=== PATIENT | female | born 1975 | race Caucasian/White ===

== ENCOUNTER → 2018-01-31 | Outpatient (CLI) | payer BC ==
[~2018-01-31] MED LIST: SUM25T PO; TRAM50TA2 PO
[2018-01-31 12:45] LABS: Basophils # (auto) 0.1 uL; Eosinophils # (auto) 0.2 uL; Hemoglobin 11.4 g/dL (12.2-16.2); Mean Corpuscular Volume 71.9 fL (80.0-100.0)
[2018-01-31 12:47] LABS: Basophils % (auto) 0.9 % (0.0-2.0); Eosinophils % (auto) 2.8 % (0.0-7.0); Hematocrit 35.9 % (36.0-46.0); Lymphocytes # (auto) 1.6 uL; Lymphocytes % (auto) 24.2 % (10.0-50.0); Mean Corpuscular Hemoglobin 22.8 pg (28.0-32.0); Mean Corpuscular Hgb Conc. 31.8 g/dL (32.0-36.0); Monocytes # (auto) 0.3 uL; Monocytes % (auto) 5.1 % (0.0-12.0); Neutrophils # (auto) 4.6 uL; Platelet Count (auto) 324 10^3/uL (140-450); Red Blood Cells 4.99 10^6/uL (4.0-5.20); Red Cell Distribution Width 16.8 % (11.8-14.3); White Blood Cell 6.8 10^3/uL (4.4-10.8)
[2018-01-31 13:24] LABS: Urine Bacteria FEW /hpf (None Seen); Urine Blood Negative /uL (Negative); Urine Mucus FEW (None Seen); Urine Specific Gravity 1.028 (1.001-1.035); Urine WBC 3 /hpf (0 - 5)
[2018-01-31 13:53] LABS: Albumin 3.7 g/dL (3.4-5.0); Calcium 8.9 mg/dL (8.5-10.1); Potassium 4.2 mmol/L (3.5-5.1)
[2018-01-31 13:59] LABS: BUN/Creatinine Ratio 13.7; Bilirubin, Total 0.2 mg/dL (0.2-1.0); Total Protein 8.2 g/dL (6.4-8.2)
== END | disposition home or self-care (01) ==
LOC: LAB 11:09
PROVIDERS: ATTEND Physician Assistant
DX: Z00.01 Encounter for general adult medical examination with abnormal findings (principal); N20.0 Calculus of kidney; N23 Unspecified renal colic; G43.909 Migraine, unspecified, not intractable, without status migrainosus
CPT/HCPCS: 36415; 80053; 80061; 81001; 82306; 83036; 84443; 85025

== ENCOUNTER → 2019-04-18 | Outpatient (CLI) | payer BC ==
[2019-04-18 09:50] LABS: Basophils # (auto) 0.1 uL; Eosinophils # (auto) 0.3 uL; Monocytes # (auto) 0.4 uL
[2019-04-18 09:52] LABS: Basophils % (auto) 0.8 % (0.0-2.0); Eosinophils % (auto) 4.9 % (0.0-7.0); Hematocrit 33.8 % (36.0-46.0); Lymphocytes # (auto) 1.3 uL; Mean Corpuscular Hemoglobin 23.6 pg (28.0-32.0); Mean Corpuscular Hgb Conc. 32.7 g/dL (32.0-36.0); Mean Corpuscular Volume 72.3 fL (80.0-100.0); Monocytes % (auto) 6.6 % (0.0-12.0); Neutrophils % (auto) 65.7 % (37.0-80.0); Platelet Count (auto) 294 10^3/uL (140-450); Red Blood Cells 4.67 10^6/uL (4.0-5.20); Red Cell Distribution Width 16.8 % (11.8-14.3)
[2019-04-18 10:28] LABS: Potassium 4.6 mmol/L (3.5-5.1)
[2019-04-18 10:47] LABS: Albumin 3.5 g/dL (3.4-5.0); BUN/Creatinine Ratio 12.3; Bilirubin, Total 0.3 mg/dL (0.2-1.0)
== END | disposition home or self-care (01) ==
LOC: LAB 09:17
PROVIDERS: ATTEND Physician Assistant
DX: N20.0 Calculus of kidney (principal); N92.1 Excessive and frequent menstruation with irregular cycle; R53.83 Other fatigue
CPT/HCPCS: 36415; 80053; 80061; 85025

== ENCOUNTER → 2019-08-02 | Outpatient (CLI) | payer BC | END | disposition home or self-care (01) | LOC: LAB 10:15 | PROVIDERS: ATTEND Physician Assistant | DX: M25.511 Pain in right shoulder (principal); Z82.61 Family history of arthritis | CPT/HCPCS: 86431 ==

== ENCOUNTER → 2019-11-21 | Outpatient (CLI) | payer BC ==
[2019-11-21 09:15] LABS: Basophils # (auto) 0.1 10 ^3/uL (0-0.2); Basophils % (auto) 1.4 % (0.0-2.0); Eosinophils # (auto) 0.2 10 ^3/uL (0-0.8); Hematocrit 35.1 % (36.0-46.0); Mean Corpuscular Hemoglobin 24.1 pg (28.0-32.0); Monocytes # (auto) 0.4 10 ^3/uL (0-1.3); Neutrophils # (auto) 4.3 10 ^3/uL (1.6-8.6); Nucleated Red Blood Cells % 0.1 %; Red Blood Cells 4.75 10^6/uL (4.0-5.20); Red Cell Distribution Width 15.9 % (11.8-14.3)
[2019-11-21 09:17] LABS: Eosinophils % (auto) 3.7 % (0.0-7.0); Hemoglobin 11.5 g/dL (12.2-16.2); Lymphocytes # (auto) 1.6 10 ^3/uL (0.4-5.4); Lymphocytes % (auto) 23.6 % (10.0-50.0); Mean Corpuscular Hgb Conc. 32.7 g/dL (32.0-36.0); Mean Corpuscular Volume 73.8 fL (80.0-100.0); Neutrophils % (auto) 65.3 % (37.0-80.0); Platelet Count (auto) 341 10^3/uL (140-450); White Blood Cell 6.6 10^3/uL (4.4-10.8)
[2019-11-21 09:56] LABS: Albumin 3.7 g/dL (3.4-5.0); Calcium 8.7 mg/dL (8.5-10.1)
[2019-11-21 09:59] LABS: Bilirubin, Total 0.3 mg/dL (0.2-1.0); CRP High Sensitivity 0.47 mg/dL (< 0.3); Total Protein 7.9 g/dL (6.4-8.2)
[2019-11-21 10:02] LABS: BUN/Creatinine Ratio 9.7
[2019-11-21 11:23] LABS: Hepatitis B Core Total AB Negative; Hepatitis B Surface Antigen Negative (Negative)
== END | disposition home or self-care (01) ==
LOC: LAB 08:53
PROVIDERS: ATTEND Internal Medicine Rheumatology
DX: Z11.1 Encounter for screening for respiratory tuberculosis (principal); M05.79 Rheumatoid arthritis with rheumatoid factor of multiple sites without organ or systems involvement; R94.5 Abnormal results of liver function studies; M32.10 Systemic lupus erythematosus, organ or system involvement unspecified
CPT/HCPCS: 36415; 80053; 85025; 85652; 86038; 86141; 86200; 86225; 86431; 86704; 87340

== ENCOUNTER → 2020-01-04 | Outpatient (CLI) | payer BC | END | disposition home or self-care (01) | LOC: LAB 11:08 | PROVIDERS: ATTEND Internal Medicine | DX: Z20.828 Contact with and (suspected) exposure to other viral communicable diseases (principal) | CPT/HCPCS: C9803; U0003 ==

== ENCOUNTER → 2020-05-15 | Outpatient (CLI) | payer BC ==
[2020-05-15 14:00] LABS: Basophils # (auto) 0.1 10 ^3/uL (0-0.2); Eosinophils # (auto) 0.1 10 ^3/uL (0-0.8); Hemoglobin 11.6 g/dL (12.2-16.2); Neutrophils # (auto) 5.4 10 ^3/uL (1.6-8.6)
[2020-05-15 14:03] LABS: Basophils % (auto) 0.8 % (0.0-2.0); Eosinophils % (auto) 1.4 % (0.0-7.0); Hematocrit 35.8 % (36.0-46.0); Lymphocytes # (auto) 1.6 10 ^3/uL (0.4-5.4); Lymphocytes % (auto) 21.5 % (10.0-50.0); Mean Corpuscular Hemoglobin 23.4 pg (28.0-32.0); Mean Corpuscular Hgb Conc. 32.4 g/dL (32.0-36.0); Mean Corpuscular Volume 72.3 fL (80.0-100.0); Monocytes # (auto) 0.4 10 ^3/uL (0-1.3); Monocytes % (auto) 5.4 % (0.0-12.0); Neutrophils % (auto) 70.9 % (37.0-80.0); Platelet Count (auto) 354 10^3/uL (140-450); Red Blood Cells 4.95 10^6/uL (4.0-5.20); White Blood Cell 7.6 10^3/uL (4.4-10.8)
[2020-05-15 15:36] LABS: Leuteinizing Hormone 5.8 IU/L
[2020-05-15 15:37] LABS: Follicle Stimulating Hormone 11.58 IU/L (SEE BELOW)
== END | disposition home or self-care (01) ==
LOC: LAB 13:31
PROVIDERS: ATTEND Obstetrics & Gynecology
DX: N93.9 Abnormal uterine and vaginal bleeding, unspecified (principal)
CPT/HCPCS: 36415; 82670; 83001; 83002; 84443; 85025

== ENCOUNTER → 2020-05-27 | Outpatient (CLI) | payer BC ==
[2020-05-27 14:30] LABS: Basophils # (auto) 0.1 10 ^3/uL (0-0.2); Eosinophils # (auto) 0.2 10 ^3/uL (0-0.8); Monocytes # (auto) 0.5 10 ^3/uL (0-1.3); Neutrophils # (auto) 4.8 10 ^3/uL (1.6-8.6); Nucleated Red Blood Cells % 0.1 %
[2020-05-27 14:31] LABS: Urine Bacteria NONE SEEN /hpf (None Seen); Urine Blood Negative /uL (Negative); Urine Mucus FEW (None Seen); Urine Specific Gravity 1.026 (1.001-1.035); Urine WBC 1 /hpf (0 - 5)
[2020-05-27 14:33] LABS: Basophils % (auto) 1.1 % (0.0-2.0); Eosinophils % (auto) 3.1 % (0.0-7.0); Hematocrit 36.3 % (36.0-46.0); Hemoglobin 11.8 g/dL (12.2-16.2); Lymphocytes # (auto) 1.9 10 ^3/uL (0.4-5.4); Lymphocytes % (auto) 24.7 % (10.0-50.0); Mean Corpuscular Hemoglobin 23.5 pg (28.0-32.0); Mean Corpuscular Hgb Conc. 32.5 g/dL (32.0-36.0); Mean Corpuscular Volume 72.4 fL (80.0-100.0); Neutrophils % (auto) 64.1 % (37.0-80.0); Platelet Count (auto) 291 10^3/uL (140-450); Red Blood Cells 5.02 10^6/uL (4.0-5.20); Red Cell Distribution Width 16.3 % (11.8-14.3); White Blood Cell 7.5 10^3/uL (4.4-10.8)
[2020-05-27 14:48] LABS: Free T4 (Free Thyroxine) 1.1 ng/dL (0.89-1.76)
[2020-05-27 16:07] LABS: Albumin 3.7 g/dL (3.4-5.0); Potassium 4.2 mmol/L (3.5-5.1)
[2020-05-27 16:11] LABS: BUN/Creatinine Ratio 13.7; Bilirubin, Total 0.3 mg/dL (0.2-1.0); Total Protein 8.3 g/dL (6.4-8.2)
== END | disposition home or self-care (01) ==
LOC: LAB 14:13
PROVIDERS: ATTEND Internal Medicine
DX: N92.1 Excessive and frequent menstruation with irregular cycle (principal)
CPT/HCPCS: 36415; 80053; 80061; 81001; 82306; 82607; 83036; 84439; 84443; 85025

== ENCOUNTER → 2021-01-29 | Day surgery (SDC) | payer BC ==
[2021-01-26 11:07] LABS: Basophils # (auto) 0.1 10 ^3/uL (0-0.2); Eosinophils # (auto) 0.3 10 ^3/uL (0-0.8); Hemoglobin 10.6 g/dL (12.2-16.2); Lymphocytes # (auto) 1.8 10 ^3/uL (0.4-5.4); Monocytes # (auto) 0.5 10 ^3/uL (0-1.3); Neutrophils # (auto) 5.2 10 ^3/uL (1.6-8.6)
[2021-01-26 11:09] LABS: Basophils % (auto) 1.1 % (0.0-2.0); Eosinophils % (auto) 3.4 % (0.0-7.0); Hematocrit 33.1 % (36.0-46.0); Lymphocytes % (auto) 23.3 % (10.0-50.0); Mean Corpuscular Hemoglobin 21.9 pg (28.0-32.0); Mean Corpuscular Hgb Conc. 31.9 g/dL (32.0-36.0); Mean Corpuscular Volume 68.6 fL (80.0-100.0); Monocytes % (auto) 6.3 % (0.0-12.0); Neutrophils % (auto) 65.9 % (37.0-80.0); Red Blood Cells 4.83 10^6/uL (4.0-5.20); Red Cell Distribution Width 17.5 % (11.8-14.3); White Blood Cell 7.9 10^3/uL (4.4-10.8)
[2021-01-26 11:14] LABS: Urine Bacteria NONE SEEN /hpf (None Seen); Urine Blood Negative /uL (Negative); Urine Mucus FEW (None Seen); Urine Specific Gravity 1.017 (1.001-1.035); Urine WBC 2 /hpf (0 - 5)
[2021-01-26 11:36] LABS: INR 1.03 (0.9-1.15); Partial Thromboplastin Time 27.4 sec (23.6-33.0)
[2021-01-26 11:39] LABS: Potassium 4.6 mmol/L (3.5-5.1)
[2021-01-26 11:49] LABS: Albumin 3.5 g/dL (3.4-5.0); BUN/Creatinine Ratio 11.3; Bilirubin, Total 0.2 mg/dL (0.2-1.0); Calcium 8.8 mg/dL (8.5-10.1); Total Protein 7.7 g/dL (6.4-8.2)
[~2021-01-29] VITALS: Ht 154.9 cm; Wt 60.3 kg
[~2021-01-29] MED LIST changes: +DexAMETHasone SOD PHOS 10MG/1ML VIAL INJ ONE; +GLYCOPYRROLATE 0.2 MG/ML 1ML VIAL ONE; +HYDROmorphone HCL 2 MG/ML VL ONE; +KETOROLAC TROMETH 30 MG/ML 1ML VIAL ONE; +LACTATED RINGER'S 1,000 ML IV SCH; +LIDOCAINE 2% (LOCAL ANESTH.) PF 5ml SDV ONE; +MEPERIDINE HCL (25 MG/ML) 1ML VIAL ONE; +MIDAZOLAM HCL 2MG/2ML 2ml VIAL (1mg/ml) ONE; +ONDANSETRON HCL 4 MG/2 ML VIAL IV PRN; +ONDANSETRON HCL 4 MG/2 ML VIAL ONE; +PROPOFOL 10 MG/ML 20 ML IV ONE; -SUM25T PO; -TRAM50TA2 PO; +ceFAZolin 1GM/50ML 50 ML IV ONE; +fentaNYL CITRATE 100 MCG/2 ML VL ONE
[2021-01-29] MEDS: HYDROmorphone HCL 2 MG/ML VL IV PRN ×4 (11:14→12:04)
[2021-01-29 12:15] VITALS: BP 160/104
== END | disposition home or self-care (01) ==
LOC: SUR 08:22
PROVIDERS: ATTEND Obstetrics & Gynecology
DX: N93.9 Abnormal uterine and vaginal bleeding, unspecified (principal); N92.0 Excessive and frequent menstruation with regular cycle; I10 Essential (primary) hypertension; Z98.890 Other specified postprocedural states; Z79.899 Other long term (current) drug therapy; Z98.891 History of uterine scar from previous surgery; Z90.49 Acquired absence of other specified parts of digestive tract; Z20.822 Contact with and (suspected) exposure to COVID-19
CPT/HCPCS: 36415; 58563; 80053; 81001; 84702; 85025; 85610; 85730; 86850; 86900; 86901; J0690; J1100; J1170; J1885; J2001; J2175; J2250; J2405; J2704; J3010; U0003

== ENCOUNTER → 2021-02-11 | Outpatient (CLI) | payer BC ==
[2021-02-11 11:26] LABS: Potassium 4.5 mmol/L (3.5-5.1)
[2021-02-11 11:35] LABS: BUN/Creatinine Ratio 18.5; Calcium 9.1 mg/dL (8.5-10.1)
== END | disposition home or self-care (01) ==
LOC: LAB 09:55
PROVIDERS: ATTEND Internal Medicine
DX: I10 Essential (primary) hypertension (principal); E55.9 Vitamin D deficiency, unspecified
CPT/HCPCS: 36415; 80048; 82306; 84439; 84443

== ENCOUNTER → 2021-02-11 | Outpatient (CLI) | payer BC | END | disposition home or self-care (01) | LOC: XYW 09:43 | PROVIDERS: ATTEND Internal Medicine | DX: I34.0 Nonrheumatic mitral (valve) insufficiency (principal); I10 Essential (primary) hypertension | CPT/HCPCS: 93306 ==